=== PATIENT | female | born 1985 | race Caucasian/White ===

== ENCOUNTER → 2019-09-09 | Day surgery (SDC) | payer BC ==
[~2019-09-09] MED LIST: Doxycycline 100 MG CAP PO SCH; Fentanyl 100 MCG/2 ML VIAL ONE; Meperidine HCl/PF 25 MG/ML VIAL ONE; Methylergonovine 0.2 MG/ML VIAL ONE; Misoprostol 200 MCG TAB ONE; Oxytocin 10 UNITS/ML VIAL ONE; Tranexamic Acid 1,000 MG/10 ML VIAL ONE
== END ==
LOC: SDC 14:42
PROVIDERS: ATTEND Student in an Organized Health Care Education/Training Program
DX: O02.1 Missed abortion (principal); Z88.5 Allergy status to narcotic agent; Z91.018 Allergy to other foods
CPT/HCPCS: J2175; J2210; J2590; J3010

== ENCOUNTER 2019-09-10 10:09 | Day surgery (SDC) | payer BC ==
[2019-09-10] MEDS ORDERED: Rocuronium Bromide 10 MG/ML (10ML VIAL) ONE (11:06)
[2019-09-10] MEDS ORDERED: Lidocaine 1% PF 5 ML VIAL ONE (11:06)
[2019-09-10] MEDS ORDERED: Dexamethasone 20 MG/5 ML VIAL ONE (11:06)
[2019-09-10] MEDS ORDERED: PROPOFOL 200 MG/20 ML VIAL ONE (11:06)
[2019-09-10] MEDS ORDERED: Ondansetron PF 4 MG/2 ML Vial ONE (11:06)
[2019-09-10] MEDS ORDERED: Glycopyrrolate 0.2 MG/ML 5 ML SYRINGE ONE (11:06)
[2019-09-10] MEDS ORDERED: Doxycycline 100 MG CAP PO SCH ×2 (12:30→16:30)
[2019-09-10 12:59] LABS: #Lymphocytes 0.9 thou/uL (1.20-3.40); #Monocytes 0.4 thou/uL (0.11-0.59); #Neutrophils 13.9 thou/uL (1.40-6.50); %Basophils 0.1 % (0.0-1.0); %Eosinophils 0.1 % (0.0-10.0); %Monocytes 2.6 % (0.0-10.0); %Neutrophils 91.2 % (42.0-75.0); Hemoglobin 12.4 g/dL (12.0-16.0); Mean Corpuscular HGB CONC 33.5 g/dL (32.0-36.0); Mean Corpuscular Hemoglobin 29.6 pg (27.0-31.0); Mean Corpuscular Volume 88.4 fL (78.0-98.0); Mean Platelet Volume 6.9 fL (7.4-10.4); Platelet Count 247 thou/uL (130-400); RBC Distribution Width 10.4 % (11.5-14.5); White Blood Cell (WBC) Count 15.3 thou/uL (4.8-10.8)
[2019-09-10] MEDS ORDERED: Midazolam HCl 2 mg/2 ml Vial ONE (13:20)
[2019-09-10] MEDS ORDERED: traMADol HCl 50 MG TAB PO PRN ×2 (16:23)
[2019-09-10] MEDS ORDERED: Morphine 4 MG/ML VIAL SLOW IVP PRN (16:23)
[2019-09-10] MEDS ORDERED: Ondansetron PF 4 MG/2 ML Vial SLOW IVP PRN (16:23)
--- NOTE | 2019-09-10 16:25 | OP ---
DATE OF PROCEDURE: 09/10/2019 PREOPERATIVE DIAGNOSES: 1. Intrauterine at 13 weeks and 3 days. 2. Spontaneous measuring 12 weeks. POSTOPERATIVE DIAGNOSES: 1. Intrauterine at 13 weeks and 3 days. 2. Spontaneous measuring 12 weeks. PROCEDURE PERFORMED: Suction dilation and curettage. ANESTHESIA: General LMA. DRESSING MACHINE OPERATOR: Stefany Slade MD, PGY-2. ESTIMATED BLOOD LOSS: 325 mL. IVF: 1 L crystalloid. URINE OUTPUT: 200 mL at the beginning. COMPLICATIONS: None. DRAINS: None. PATHOLOGY: Products of conception. FINDINGS: Products of conception in the cervical os. Cervix was dilated approximately 2 cm. The uterus was approximately 12-week size. They were gritty texture. All uterine delgado at the conclusion of procedure, no active bleeding. DESCRIPTION OF PROCEDURE: The patient was taken to operating room, where general anesthesia was obtained without difficulty. The patient was prepped and draped in a sterile fashion in candy-cane stirrups. A speculum was placed in the vagina and products of conceptions were visible at the cervical os. These were grasped with ring forceps and removed completely. It appeared to be a complete placental sac. There was also a pole that was present separate from the placental sac. These were sent for final pathology. The patient was bleeding slightly. Therefore, sharp curettage was taken to the uterine wall. The patient began to gush blood rather briskly. Therefore, the patient was started on Pitocin infusion as well as given Methergine and TXA 1 g. Suction curettage was taken to the fundus of the uterus with a 12 mm suction curette and maximum pressure 50 mmHg and the bleeding seemed to slow down after curetting. Continued sharp curettage was performed. There were no products of conception returning. However, the patient continued to bleed. She was then given 800 Cytotec in the rectum and fundal massage was performed. This seemed to improve the uterine tone slightly. The cervix was then observed and minimal bleeding was noted initially, but then did start to bead picker. Sharp curettage was again performed as well as fundal massage. It was felt very confident that there were no further products of conception. Suction was placed into the uterus and there was no blood returning in the tubing. Therefore, the cervix was observed and no active bleeding was occurring. All instruments were removed out of the vagina. The patient tolerated the procedure well. Sponge, lap, and needle counts were correct x2. The patient was taken to recovery room in stable condition. The patient received doxycycline 200 mg prior to the procedure. Job ID: [id number]
[2019-09-10] MEDS ORDERED: Dextrose 5%-Lactated Ringers 1,000 ML IV SCH (16:30)
[2019-09-10] MEDS ORDERED: NS / Oxytocin 40 units/1000ml 1,000 ML IV SCH (16:30)
== END 2019-09-10 19:15 | disposition home or self-care (01) ==
LOC: SDC 10:09
PROVIDERS: ATTEND Advanced Practice Midwife
PROC: 10D17ZZ Extraction of Products of Conception, Retained, Via Natural or Artificial Opening (ICD-10-PCS; principal; 2019-09-10)
DX: O03.4 Incomplete spontaneous abortion without complication (principal); F41.9 Anxiety disorder, unspecified; J45.909 Unspecified asthma, uncomplicated; Z88.5 Allergy status to narcotic agent; Z91.018 Allergy to other foods
CPT/HCPCS: 36415; 85025; 86850; 86900; 86901; 88305; J1100; J2001; J2250; J2405; J2704

== ENCOUNTER 2020-10-04 10:30 | Outpatient (CLI) | payer BC ==
--- NOTE | 2020-10-04 12:16 | MRI ---
EXAM: MRI Upper Ext Jt Rt W WO Con DATE: 10/04/2020 11:00 AM INDICATION: History of cervical radiculopathy the right arm tingling and numbness for 5 to 6 years COMPARISON: None. FINDING: Multiplanar multisequence MR images were obtained of the right brachial plexus with and wit hout IV contrast. 17 cc MultiHance was utilized for the exam. No visible mass or lymphadenopathy is seen along the course of the right brachial plexus. The right b rachial plexus itself demonstrates normal signal intensity without evidence of abnormal enhancement. There is no evidence of right-sided muscular atrophy. No pathologically enlarged lymph n odes are seen. Bone marrow signal intensity appears within normal limits. IMPRESSION:No acute abnormality evident.
[2020-10-04] MEDS ORDERED: Magnevist 469MG/ML 20 ML VIAL ONE (12:25)
== END 2020-10-04 10:31 | disposition home or self-care (01) ==
LOC: BICMRI 10:30
PROVIDERS: ATTEND Neurological Surgery
DX: M54.12 Radiculopathy, cervical region (principal)
CPT/HCPCS: A9579